=== PATIENT | male | born 1950 | race Caucasian/White ===

== ENCOUNTER 2023-09-12 13:48 | Outpatient (OUT) | payer MEDICARE, MEDICAID, SELFPAY ==
--- NOTE | 2023-09-12 14:48 | CA_ITS ---
Patient Name: ALINE MUNOZ MR#: [id number] : 1950 Exam Date: 09/12/2023 Ordering Doctor: DR FIDE QUINN M.D. ECHOCARDIOGRAM REPORT PROCEDURE: CA ECHO DOPPLER COMPLETE INDICATIONS: Nonrheumatic aortic valve stenosis, dementia COMPARISON: None. DESCRIPTION: COMPLETE ECHOCARDIOGRAM Real-time transthoracic echocardiography with 2D, M-mode, spectral and color flow Doppler performed. QUALITY: Patient was done in wheelchair. 67 , 162#, BSA 1.83 m2 LEFT VENTRICLE: Normal chamber size. Mild concentric left ventricular hypertrophy. LV EF: Global left ventricular systolic function is normal; visually estimated ejection fraction is 60 to 65% DIASTOLIC: Grade I diastolic dysfunction. ATRIAL SEPTUM: Inadequately visualized. LEFT ATRIUM: Normal chamber size. RIGHT ATRIUM: Normal chamber size. RIGHT VENTRICLE: Normal chamber size. Normal right ventricular systolic function. TRICUSPID VALVE: Normal mobility and thickness. No stenosis with trivial regurgitation. Unable to assess right-sided pressures due to lack of measurable tricuspid regurgitation. MITRAL VALVE: Normal mobility and thickness. No evidence of mitral valve stenosis. There is no mitral annular calcification. No mitral regurgitation. AORTIC VALVE: Severely calcified aortic valve. Severely diminished mobility. Doppler velocity suggests paradoxical low flow, low gradient severe aortic valve stenosis. DVI 0.24, KRISTIN 1.0 cm2. No aortic regurgitation. AORTIC ROOT: Ascending aorta is dilated (3.9 cm). PULMONIC VALVE: Normal thickness and mobility. No stenosis. Trivial regurgitation. PERICARDIUM: No evidence of pericardial effusion. IVC: Not well visualized. CONCLUSION: 1. Global left ventricular systolic function is normal; visually estimated ejection fraction is 60 to 65% 2. Mild increased left ventricular wall thickness 3. Right ventricle is normal in size and systolic function 4. Grade 1, mild diastolic dysfunction 5. Paradoxical low-flow, low gradient, severe aortic valve stenosis 6. Ascending aorta is mildly dilated Adult Echocardiography Procedure Report Left Ventricle LVEDD (3.7 - 5.6 cm): 3.86 cm LVESD (2.2 - 4.0 cm): 2.51 cm LVIVS thickness (0.6 - 1.2 cm): 1.30 cm LVPW thickness (0.5 - 1.0 cm): 1.17 cm e': 0.14 m/s E - e': 3.01 LVOT Max Gradient: 1.39 mm[Hg] LVOT Area (cm2): 0.59 m/s Peak Velocity (LVOT): 0.59 m/s Mean Velocity (LVOT): 0.42 m/s LVOT Diameter 2.18 cm Left Atrium LA Volume Index (2D A2C): 23.36 ml/m2 Left Atrium Systolic Dimension: 4.06 cm Mitral Valve MV E to A Ratio: 0.49 Mitral Valve A-Wave Peak Velocity: 0.86 m/s Mitral Valve E-Wave Peak Velocity: 0.42 m/s Right Ventricle Aorta AO Root Diam: 3.57 cm Ascending Ao Diam: 3.78 cm Aortic Valve AoV Area (Peak Jesus): 1.03 cm2, 0.90 cm2, 1.28 cm2, 1.28 cm2 AoV Area (VTI): 0.99 cm2, 0.89 cm2 Peak Velocity(Antegrade Flow): 2.44 m/s, 1.84 m/s, 1.72 m/s Peak Gradient(Antegrade Flow): 11.89 mm[Hg], 23.80 mm[Hg], 13.59 mm[Hg] Mean Velocity(Antegrade Flow): 1.74 m/s, 1.40 m/s Mean Gradient(Antegrade Flow): 14.13 mm[Hg], 8.56 mm[Hg] Velocity Time Integral: 43.67 cm, 35.16 cm Tricuspid Valve Pulmonic Valve Peak Velocity: 0.98 m/s Peak Gradient: 4.15 mm[Hg], 3.61 mm[Hg] Right Atrium Dictated by: Bar Worthington M.D. on 09/12/2023 at 16:22 Approved by: Bar Worthington M.D. on 09/12/2023 at 16:31
== END 2023-09-12 13:49 | disposition home or self-care (01) ==
LOC: CARD 13:48
PROVIDERS: Visit Provider Internal Medicine Interventional Cardiology
DX: I35.0 Nonrheumatic aortic (valve) stenosis (principal)
CPT/HCPCS: 93306